=== PATIENT | female | born 1990 | race African-American/Black ===

== ENCOUNTER 2020-07-01 12:55 | Emergency (ER) | payer OTHER, SELFPAY ==
--- NOTE | 2020-07-01 13:05 | ED_ITS ---
HPI - General Adult General Chief complaint: ETOH/Substance Use Stated complaint: AMS Time Seen by Provider: 07/01/20 12:58 Source: patient and family Mode of arrival: ambulatory Limitations: other (agitated yelling out, initially denied opiate abuse recently, vague historian) History of Present Illness HPI narrative: 29 yo female with opiate use disorder started back on suboxone took a dose this AM - initially denied using recently but admits to taking percocets yesterday c/o anxiety/restlessness/vomiting/diarrhea patient very agitated on arrival. MD complaint: withdrawal Onset (ago): hour(s) (2) Severity: severe Quality: aching and constant Pain Consistency: constant Relieving factors: none Exacerbating factors: other (started after taking suboxone) Associated symptoms: loss of appetite, malaise, nausea/vomiting and other (anxiety, restlessness, diarrhea) Treatments prior to arrival: none Related Data Allergies Allergy/AdvReac Type Severity Reaction Status Date / Time ibuprofen [From MOTRIN] Allergy Intermediate SWELLING Unverified 11/09/19 19:42 fluoxetine [From PROZAC] Allergy Unknown HIVES Unverified 11/09/19 19:42 Review of Systems Review of Systems: ROS unable to be obtained due to agitation PMFSH Past Medical History Attestation statement: The following information was validated with the patient. Medical History Anxiety Opiate abuse, continuous Social History Social History (Updated 07/01/20 @ 13:24 by Leslye Gilman DO) Smoking Status: Unknown if ever smoked Substance Use Type: Heroin and Opiates Advance Directives: No Advance Directives Information Provided: No Physical Exam Vital Signs: Vital Signs: Last Vital Signs Pulse 70 07/01/20 13:49 Resp 22 H 07/01/20 13:49 BP 128/59 L 07/01/20 13:49 Pulse Ox 99 07/01/20 13:49 Body Mass Index 43.2 Appearance: Alert. Oriented X3. Anxious, moderate acute distress, yelling out Eyes: Pupils equal, round and reactive to light. ENT: Pharynx normal. Neck: Normal inspection. Neck supple. CVS: tachycardic heart rate and rhythm. Pulses normal. Respiratory: No respiratory distress. Breath sounds normal. Abdomen: Soft and nontender. Skin: Skin warm and dry. Normal skin color. Normal skin turgor. Extremities: No lower extremity edema. No calf ttp Neuro: Oriented X 3. No motor deficit. No sensory deficit. Psych: yelling out, restless, very anxious Course Course Course Narrative: patient more appropriate after medications asnwering questions but still restless ripped her IV out, eloped from the ED with her significant other Medical Decision Making MDM Narrative Medical decision making narrative: 29 yo female who took suboxone this AM for the first time a while this AM but unfortunately was taking oxycodone yesterday now with chills, anxiety, restless, diarrhea after putting herself into precipitated withdrawal, at this time given the degree of her symptoms offered IV ativan and IM haldol for symptom control, patient agrees and wants to try anything at this time. doubt other ingestions. Lab Data Result diagrams: 07/01/20 13:41 07/01/20 13:41 Labs: Lab Results 07/01/20 07/01/20 07/01/20 Range/Units 13:41 13:41 13:41 WBC 13.6 H (4.8-10.8) X10*3/uL RBC 5.55 H (4.20-5.50) X10*6/uL Hgb 12.6 (12.0-16.0) g/dl Hct 41.4 (37-47) % MCV 74.6 L (80-98) fL MCH 22.7 L (27.0-33.0) pg MCHC 30.4 L (31.0-35.0) g/dl RDW 15.3 (11.0-16.0) % Plt Count 256 (160-400) X10*3/uL MPV 11.7 (9.4-12.3) fL Immature Gran % (Auto) 0.4 (0.0-0.4) % Neut % (Auto) 80.7 H (45-73) % Lymph % (Auto) 12.0 L (20-40) % [place] % (Auto) 5.8 (2-11) % Eos % (Auto) 0.7 (0-4) % Baso % (Auto) 0.4 (0-2) % Lymph # (Auto) 1.6 (1.2-4.9) X10*3/uL [place] # (Auto) 0.8 (0.1-1.2) X10*3/uL Eos # (Auto) 0.1 (0.0-0.4) X10*3/uL Baso # (Auto) 0.1 (0.0-0.2) X10*3/uL Abs Immat Gran (auto) 0.05 H (0.00-0.03) X10*3/uL Absolute Neuts (auto) 11.0 H (2.0-8.3) X10*3/uL Absolute Nucleated RBC 0.000 (0.0-0.012) X10*3/uL Nucleated RBC % (auto) 0.0 (0.0-0.2) /100WBC Hold Blue Top SEE NOTE Sodium 136 (135-145) mmol/L Potassium 4.7 (3.3-5.1) mmol/L Chloride 103 (96-108) mmol/L Carbon Dioxide 25 (22-29) mmol/L Anion Gap 13 (12-20) BUN 14 (9-16) mg/dL Creatinine 0.88 (0.5-1.4) mg/dL Estim Creat Clear Calc 123.3 Estimated GFR > 60 Random Glucose 100 (60-115) mg/dL Calcium 9.8 (8.4-10.2) mg/dL Magnesium 2.0 (1.6-2.6) mg/dL Total Bilirubin 0.4 (0.0-1.0) mg/dL Direct Bilirubin < 0.2 (0.0-0.5) mg/dL AST 22 (5-31) U/L ALT 25 (0-31) U/L Alkaline Phosphatase 115 (39-117) U/L Total Protein 7.1 (6.5-8.0) g/dL Albumin 4.3 (3.5-5.0) g/dL Lipase 27 (8-78) U/L Ethyl Alcohol mg/dL 07/01/20 Range/Units 13:41 WBC (4.8-10.8) X10*3/uL RBC (4.20-5.50) X10*6/uL Hgb (12.0-16.0) g/dl Hct (37-47) % MCV (80-98) fL MCH (27.0-33.0) pg MCHC (31.0-35.0) g/dl RDW (11.0-16.0) % Plt Count (160-400) X10*3/uL MPV (9.4-12.3) fL Immature Gran % (Auto) (0.0-0.4) % Neut % (Auto) (45-73) % Lymph % (Auto) (20-40) % [place] % (Auto) (2-11) % Eos % (Auto) (0-4) % Baso % (Auto) (0-2) % Lymph # (Auto) (1.2-4.9) X10*3/uL [place] # (Auto) (0.1-1.2) X10*3/uL Eos # (Auto) (0.0-0.4) X10*3/uL Baso # (Auto) (0.0-0.2) X10*3/uL Abs Immat Gran (auto) (0.00-0.03) X10*3/uL Absolute Neuts (auto) (2.0-8.3) X10*3/uL Absolute Nucleated RBC (0.0-0.012) X10*3/uL Nucleated RBC % (auto) (0.0-0.2) /100WBC Hold Blue Top Sodium (135-145) mmol/L Potassium (3.3-5.1) mmol/L Chloride (96-108) mmol/L Carbon Dioxide (22-29) mmol/L Anion Gap (12-20) BUN (9-16) mg/dL Creatinine (0.5-1.4) mg/dL Estim Creat Clear Calc Estimated GFR Random Glucose (60-115) mg/dL Calcium (8.4-10.2) mg/dL Magnesium (1.6-2.6) mg/dL Total Bilirubin (0.0-1.0) mg/dL Direct Bilirubin (0.0-0.5) mg/dL AST (5-31) U/L ALT (0-31) U/L Alkaline Phosphatase (39-117) U/L Total Protein (6.5-8.0) g/dL Albumin (3.5-5.0) g/dL Lipase (8-78) U/L Ethyl Alcohol < 10 mg/dL Discharge Plan Discharge Clinical Impression: Opiate withdrawal Patient Disposition: [facility]op[facility]
[2020-07-01] MEDS: Haloperidol Lactate 5 MG/ML VIAL IM (13:31)
[2020-07-01] MEDS: LORazepam 2 MG/ML VIAL IVPUSH (13:31)
[2020-07-01] MEDS: 0.9 % Sodium Chloride 1,000 ML 999 ML IVCONT (13:32)
[2020-07-01 13:45] LABS: MANUAL DIFF FLAG NO
[2020-07-01 13:49] VITALS: BP 128/59; PULSE 70; RESP 22; O2SAT 99; BMI 43.2
--- NOTE | 2020-07-01 13:49 | MHC.RECOVSUP ---
? Reason for consult:Continuity of care o Current location: ED--17 o Identified substance use concern:ETOH - Withdrawal - Support ? Intervention: o MAT started or to be started o Community resources provided o Harm reduction discussion ? Plan: o Referral to [facility] o Patient to follow up with [facility] after discharge ? Additional information :Patient changed mind and was processed for discharge.
[2020-07-01 13:57] LABS: Basophils Absolute Auto 0.1 X10*3/uL (0.0-0.2); Basophils Percent Auto 0.4 % (0-2); Eosinophils Absolute Auto 0.1 X10*3/uL (0.0-0.4); Eosinophils Percent Auto 0.7 % (0-4); Hematocrit 41.4 % (37-47); Hemoglobin 12.6 g/dl (12.0-16.0); Imm Gran Abs Auto 0.05 X10*3/uL (0.00-0.03); Imm Gran Pct Auto 0.4 % (0.0-0.4); Lymphocytes Absolute Auto 1.6 X10*3/uL (1.2-4.9); Mean Corpuscular HGB Conc 30.4 g/dl (31.0-35.0); Mean Corpuscular Hemoglobin 22.7 pg (27.0-33.0); Mean Corpuscular Volume 74.6 fL (80-98); Mean Platelet Volume 11.7 fL (9.4-12.3); Monocytes Absolute Auto 0.8 X10*3/uL (0.1-1.2); Monocytes Percent Auto 5.8 % (2-11); Neutrophils Percent Auto 80.7 % (45-73); Platelet Count 256 X10*3/uL (160-400); Red Blood Count 5.55 X10*6/uL (4.20-5.50); Red Cell Distribution Width 15.3 % (11.0-16.0); White Blood Count 13.6 X10*3/uL (4.8-10.8)
[2020-07-01 14:16] LABS: Ethanol < 10 mg/dL
[2020-07-01 14:18] LABS: Alanine Aminotransferase 25 U/L (0-31); Albumin Level 4.3 g/dL (3.5-5.0); Alkaline Phosphatase 115 U/L (39-117); Anion Gap 13 (12-20); Aspartate Amino Transferase 22 U/L (5-31); Bilirubin Direct < 0.2 mg/dL (0.0-0.5); Bilirubin Total 0.4 mg/dL (0.0-1.0); Blood Urea Nitrogen 14 mg/dL (9-16); Calcium 9.8 mg/dL (8.4-10.2); Carbon Dioxide 25 mmol/L (22-29); Chloride 103 mmol/L (96-108); Creatinine Clr Calc Pharmacy 123.3; Estimated Glomerular Filt Rate > 60; Glucose Random 100 mg/dL (60-115); Lipase 27 U/L (8-78); Potassium 4.7 mmol/L (3.3-5.1); Sodium 136 mmol/L (135-145); Total Protein 7.1 g/dL (6.5-8.0)
[2020-07-01] MEDS: LORazepam 2 MG/ML VIAL 1 MG IVPUSH (14:24)
--- NOTE | 2020-07-01 15:48 | PC.NURSE ---
medication discussed between patient and provider. patient agreeable to medication treatment for the symptoms of withdrawl.
== END 2020-07-01 15:48 | disposition left against medical advice (07) ==
PROVIDERS: Emergency Medicine; Emergency Provider Emergency Medicine
DX: F11.23 Opioid dependence with withdrawal (principal); F41.9 Anxiety disorder, unspecified
CPT/HCPCS: 36415; 80048; 80076; 80320; 83690; 83735; 85025; 96361; 96372; 96374; 96375; 96376; 99284; J2060

== ENCOUNTER 2022-05-09 06:00 | Emergency (ER) | payer OTHER, SELFPAY ==
[2022-05-09 06:07] VITALS: BP 146/72; PULSE 119; RESP 18; TEMP 36.8; O2SAT 100; BMI 27.4
--- NOTE | 2022-05-09 06:14 | PC.NURSE ---
Patient requesting discharge, denied SI/HI/AVH, patient doesn't remember how she got at [place], appears she might have taken extra dose of Ambien which is one of her prescribed medication, provider saw the patient agreed to discharge patient if she has ride back home, patient currently trying to reach her for ride back home, will continue to monitor.
--- NOTE | 2022-05-09 06:38 | ED.PSYCH ---
HPI - Psych General Chief Complaint: Psychiatric Symptoms Stated Complaint: crisis Time Seen by Provider: 05/09/22 06:27 Source: patient Mode of arrival: EMS Limitations: no limitations History of Present Illness HPI Narrative: Patient with history of insomnia on zolpidem took 20 mg earlier [place] having erratic behavior sleepy denies any drugs abuse denies any suicidal ideation depression Related Data Allergies Allergy/AdvReac Type Severity Reaction Status Date / Time ibuprofen [From MOTRIN] Allergy Intermediate SWELLING Unverified 11/09/19 19:42 fluoxetine [From PROZAC] Allergy Unknown HIVES Unverified 11/09/19 19:42 Review of Systems Review of Systems: Yes all other systems are reviewed and are negative PMFSH Past Medical History Medical History Anxiety Opiate abuse, continuous Social History Social History Substance Use Type: Heroin and Opiates Physical Exam Vital Signs: Vital Signs: Last Vital Signs Temp 98.2 F 05/09/22 06:07 Pulse 119 H 05/09/22 06:07 Resp 18 05/09/22 06:07 BP 146/72 H 05/09/22 06:07 Pulse Ox 100 05/09/22 06:07 O2 Del Method 05/09/22 06:07 BMI result Body Mass Index 27.4 Appearance: Alert. Oriented X3. No acute distress. Falling sleep very often Eyes: PERRLA, No Nystagmus ENT: Pharynx normal. Oral Mucosa moist Neck: Normal inspection. Neck supple. CVS: Normal heart rate and rhythm. Pulses normal. Respiratory: No respiratory distress. Equal air entry bilateral, no wheezing/rales/rhonchi Abdomen: Soft and nontender. Bowel sounds are present, Skin: Skin warm and dry. Normal skin color. Normal skin turgor. Extremities: No lower extremity edema. No calf tenderness Neuro: Oriented X 3. No motor deficit. No sensory deficit. Medical Decision Making Medical Decision Making MDM Narrative: Patient does not want any psych evaluation does not want any urine testing done feels safe at home will call family to take her home feeling sleepy secondary to zolpidem which she took accidentally 2 tablets instead of 1 Discharge Plan Discharge Clinical Impression: Ambien accidental overdose Patient Disposition: Still a Patient Instructions: Benzodiazepine Overdose (ED) Additional Instructions: Do not overdose on Ambien Take medication as prescribed only Interventions: [place]-Suicide Risk Severity Scale Last Done: 05/09/22 06:13
== END 2022-05-09 10:09 | disposition home or self-care (01) ==
PROVIDERS: Emergency Provider Internal Medicine
DX: R40.0 Somnolence (principal); T42.6X1A Poisoning by other antiepileptic and sedative-hypnotic drugs, accidental (unintentional), initial encounter; Y92.524 Gas station as the place of occurrence of the external cause; G47.00 Insomnia, unspecified; Z79.899 Other long term (current) drug therapy
CPT/HCPCS: 99284

== ENCOUNTER 2022-12-16 08:55 | Emergency (ER) | payer OTHER, SELFPAY ==
[2022-12-16] VITALS (7 sets, daily range): BP systolic 98–130; BP diastolic 56–90; PULSE 59–98; RESP 14–17; TEMP 36.6–37; O2SAT 98–100; BMI 37.4
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
--- NOTE | 2022-12-16 09:23 | PC.NURSE ---
arousable to voice, collar in place by ems, skin wpd, resp even and unlabored, pd at bedside and cuffed to the bed
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
[2022-12-16 09:48] LABS: MANUAL DIFF FLAG NO
[2022-12-16 10:07] LABS: Alanine Aminotransferase 12 U/L (0-31); Albumin Level 4.3 g/dL (3.5-5.0); Alkaline Phosphatase 69 U/L (39-117); Anion Gap 10 (12-20); Aspartate Amino Transferase 14 U/L (5-31); Bilirubin Direct < 0.2 mg/dL (0.0-0.5); Bilirubin Total 0.2 mg/dL (0.0-1.0); Blood Urea Nitrogen 13 mg/dL (9-16); Calcium 9.2 mg/dL (8.4-10.2); Carbon Dioxide 26 mmol/L (22-29); Chloride 105 mmol/L (96-108); Creatinine Clr Calc Pharmacy 124.9; Estimated Glomerular Filt Rate > 60; Glucose Random 84 mg/dL (60-115); Lipase 8 U/L (8-78); Potassium 4.4 mmol/L (3.3-5.1); Sodium 137 mmol/L (135-145); Total Protein 7.3 g/dL (6.5-8.0)
[2022-12-16 10:10] LABS: Ethanol < 10 mg/dL
[2022-12-16 10:13] LABS: HCG Quantitative < 2 mIU/mL
[2022-12-16 10:15] LABS: Basophils Percent Auto 0.3 % (0-2); Hemoglobin 9.1 g/dl (12.0-16.0); Imm Gran Abs Auto 0.03 X10*3/uL (0.00-0.03); Imm Gran Pct Auto 0.3 % (0.0-0.4); Lymphocytes Absolute Auto 1.4 X10*3/uL (1.2-4.9); Lymphocytes Percent Auto 14.1 % (20-40); Mean Corpuscular HGB Conc 28.4 g/dl (31.0-35.0); Mean Corpuscular Hemoglobin 18.5 pg (27.0-33.0); Mean Platelet Volume 10.5 fL (9.4-12.3); Monocytes Absolute Auto 0.6 X10*3/uL (0.1-1.2); Monocytes Percent Auto 6.5 % (2-11); Neutrophils Absolute Auto 7.6 x10*3/uL (2.0-8.3); Neutrophils Percent Auto 78.8 % (45-73); Platelet Count 210 X10*3/uL (160-400); Red Blood Count 4.92 X10*6/uL (4.20-5.50); Red Cell Distribution Width 20.5 % (11.0-16.0); White Blood Count 9.7 X10*3/uL (4.8-10.8)
--- NOTE | 2022-12-16 11:57 | PC.NURSE ---
pt returned from CT scan, assisted with bed jose, Urine specimens collected per orders, new linens placed under pt, warm blankets given HOB lowered. c-collar in place still in [employer] custody
[2022-12-16] MEDS: iohexoL 350 MG/ML 100 ML INFUS..BTL 85 ML IV (11:58)
[2022-12-16 12:08] LABS: Amphetamine Screen Urine Not Detected (Not Detect); Barbiturates, Urine Not Detected (Not Detect); Benzodiazepines Screen Urine Not Detected (Not Detect); Cannabinoid Screen Urine Not Detected (Not Detect); Cocaine Screen Urine POSITIVE (Not Detect); Fentanyl, urine POSITIVE (Not Detect); Opiate Screen Urine POSITIVE (Not Detect); Phencyclidine Screen Urine Not Detected (Not Detect)
[2022-12-16 12:14] LABS: Appearance Urine Cloudy; Color Urine Yellow; Glucose Urine UA Negative (Negative); Leukocyte Esterase Urine Small (1+) (Negative); Nitrite Urine Positive (Negative); PH 7.5 (5.0-9.0); Specific Gravity - Urine >= 1.030 (1.005-1.025); UMIC TRIGGER UACC YES; Urine Blood Negative (Negative); Urine Ketones Negative (Negative); Urine Protein Negative (Neg-Trace)
[2022-12-16 12:16] LABS: UPreg QC Valid YES; Urine Pregnancy NEGATIVE (NEGATIVE)
[2022-12-16 12:19] LABS: Bacteria Urine 4+ (None Seen); Hyaline Casts Urine 0-2 /LPF (0-2); RBC Urine 0-2 /HPF (0-2); UACC Culture Trigger YES
[2022-12-16 18:48] LABS: MANUAL DIFF FLAG NO
[2022-12-16 18:58] LABS: Basophils Percent Auto 0.4 % (0-2); Hematocrit 30.4 % (37.0-47.0); Imm Gran Abs Auto 0.01 X10*3/uL (0.00-0.03); Imm Gran Pct Auto 0.1 % (0.0-0.4); Lymphocytes Absolute Auto 1.6 X10*3/uL (1.2-4.9); Lymphocytes Percent Auto 20.3 % (20-40); Mean Corpuscular HGB Conc 29.6 g/dl (31.0-35.0); Mean Corpuscular Hemoglobin 18.8 pg (27.0-33.0); Mean Corpuscular Volume 63.3 fL (80.0-98.0); Mean Platelet Volume 9.9 fL (9.4-12.3); Monocytes Absolute Auto 0.5 X10*3/uL (0.1-1.2); Neutrophils Absolute Auto 5.6 x10*3/uL (2.0-8.3); Neutrophils Percent Auto 72.2 % (45-73); Platelet Count 199 X10*3/uL (160-400); Red Cell Distribution Width 20.4 % (11.0-16.0); White Blood Count 7.7 X10*3/uL (4.8-10.8)
--- NOTE | 2022-12-16 22:06 | PC.NURSE ---
pt continues to be in [employer] custody pt has been slow to rouse throughout shift, answering in one or two words to nurse/provider questions then immediately going back to sleep. Pt is rousable to verbal/tactile stimuli. Ptw as ordered ceftin for Urinary tract infection, however since pt has been difficult to rouse, hindering education on the medication, and has not been admin. Ptrespirations even and unlabored- O2 sat probe in place, 98% on room air at this time. no apparent distress, PD at bedside. plan for dc once pt more alert. care ongoing
[2022-12-17] MEDS: Naloxone HCl 0.4 MG/ML VIAL IVPUSH (02:06)
--- NOTE | 2022-12-17 02:13 | PC.NURSE ---
assumed care of pt
[2022-12-17 02:17] VITALS: BP 119/89; RESP 94; TEMP 36.6
--- NOTE | 2022-12-17 02:20 | PC.NURSE ---
pt sts feeling nauseous after narcan and does not wantto take PO antibiotic at this time
--- NOTE | 2022-12-17 03:14 | PC.NURSE ---
attempted to ambulate pt, pt refusing I am too dizzy Will let provider know
--- NOTE | 2022-12-17 03:28 | PC.NURSE ---
pt refused antibiotic
[2022-12-17 03:42] VITALS: RESP 16
== END 2022-12-17 04:04 ==
PROVIDERS: Physician Assistant Medical; Emergency Provider Emergency Medicine
DX: Z04.1 Encounter for examination and observation following transport accident (principal); N39.0 Urinary tract infection, site not specified; F11.10 Opioid abuse, uncomplicated; F14.10 Cocaine abuse, uncomplicated; F41.9 Anxiety disorder, unspecified
CPT/HCPCS: 36415; 70450; 71260; 72125; 74177; 80048; 80076; 80307; 81001; 81003; 81025; 83690; 84702; 85025; 87086; 87088; 87186; 96374; 99284; Q9967

== ENCOUNTER 2024-02-17 09:33 | Outpatient (REF) | payer OTHER, SELFPAY ==
[2024-02-17 11:25] LABS: Hematocrit 38.4 % (37.0-47.0); Hemoglobin 11.8 g/dl (12.0-16.0); Mean Corpuscular HGB Conc 30.7 g/dl (31.0-35.0); Mean Corpuscular Hemoglobin 24.7 pg (27.0-33.0); Mean Corpuscular Volume 80.5 fL (80.0-98.0); Mean Platelet Volume 11.4 fL (9.4-12.3); Platelet Count 274 X10*3/uL (160-400); Red Blood Count 4.77 X10*6/uL (4.20-5.50); Red Cell Distribution Width 13.3 % (11.0-16.0); White Blood Count 10.7 X10*3/uL (4.8-10.8)
[2024-02-17 11:58] LABS: Alanine Aminotransferase 38 U/L (0-31); Albumin Level 3.8 g/dL (3.5-5.0); Anion Gap 12 (12-20); Aspartate Amino Transferase 29 U/L (5-31); Bilirubin Total 0.2 mg/dL (0.0-1.0); Blood Urea Nitrogen 7 mg/dL (9-16); Calcium 8.8 mg/dL (8.4-10.2); Carbon Dioxide 23 mmol/L (22-29); Chloride 108 mmol/L (96-108); Estimated Glomerular Filt Rate > 60; Glucose Random 105 mg/dL (60-115); Potassium 3.9 mmol/L (3.3-5.1); Sodium 139 mmol/L (135-145); Total Protein 6.9 g/dL (6.5-8.0)
[2024-02-17 12:44] LABS: Alkaline Phosphatase 118 U/L (39-117)
[2024-02-17 14:47] LABS: HBsAGNum1 0.32 S/CO (0.00-0.99); HIV AB/AG Nonreactive (Nonreactive); HIV Num 1 0.06 S/CO (0.00-0.99); Hepatitis B Surface Antigen Negative (Negative)
[2024-02-18 07:58] LABS: Hepatitis B Surface Ab Qnt <5 mIU/mL (> OR = 10)
[2024-02-18 12:44] LABS: HCV RNA PCR Qn <1.18 NOT DETECTED Log IU/mL (NOT DETECTED); HCV RNA PCR Qn <15 NOT DETECTED IU/mL (NOT DETECTED)
== END 2024-02-17 09:34 | disposition home or self-care (01) ==
LOC: HO.HHCL 09:33
PROVIDERS: Visit Provider Physician Assistant
DX: Z11.4 Encounter for screening for human immunodeficiency virus [HIV] (principal); F11.10 Opioid abuse, uncomplicated
CPT/HCPCS: 36415; 80053; 85027; 86317; 87340; 87389; 87522

== ENCOUNTER 2024-03-13 18:57 | Emergency (ER) | payer OTHER, SELFPAY ==
--- NOTE | ~2024-03-13 | CT_ITS ---
CLINICAL HISTORY: Fall, head strike, nausea, rule out fracture, blee CT head without contrast Comparison: Head CT from 12/16/2022 Findings: No acute intracranial hemorrhage. No midline shift or hydrocephalus. Arredondo matter-white matter differentiation is adequate and not significantly changed from comparison, accounting for differences in artifacts. Imaged paranasal sinuses and imaged mastoid air cells are well aerated. Metal artifacts secondary to right-sided earring. Nasal septum defect redemonstrated. No acute skull fracture. IMPRESSION: No acute intracranial abnormality by CT and no significant change compared to 12/16/2022. This document has been electronically signed by: Jose Byrne MD on 03/13/2024 20:55:24
--- NOTE | ~2024-03-13 | CT_ITS ---
CLINICAL HISTORY: Fall, severe lower back pain, R O fracture CT lumbar spine without contrast Comparison: None Findings: Normal heights of 5 lumbar vertebrae. No acute fracture of the lumbar spine.No significant listhesis. Mild facet arthropathy. No osseous spinal stenosis by CT. Dorsal subcutaneous fluid is partially imaged in the [id number]. Imaged retroperitoneal lymph nodes are nonspecific irregular reactive. Motion artifacts about imaged upper abdomen with likely cholecystectomy clips. Minimal atelectasis in the [id number]. IMPRESSION: No acute fracture or posttraumatic malalignment of the lumbar spine. This document has been electronically signed by: Jose Byrne MD on 03/13/2024 20:51:08
--- NOTE | ~2024-03-13 | CT_ITS ---
CLINICAL HISTORY: Fall, neck pain, rule out fracture CT cervical spine without contrast Comparison: CT of the cervical spine from 12/16/2022 Findings: Straightening of the cervical lordosis. No significant change in vertebral heights or vertebral alignments. No acute fracture of the cervical spine. Mild degenerative changes include facet arthropathy. No osseous spinal stenosis by CT. Mild rotation of the craniocervical junction without disc association. Leftward curvature of the time of the imaging. No paraspinal hematoma. Motion artifacts about imaged lung apices and imaged. Metal artifacts from likely right sided ear ring. Findings of poor dentition on the spinning room worker images. IMPRESSION: 1. No acute fracture cervical spine. 2. Straightening of the cervical lordosis. This document has been electronically signed by: Jose Byrne MD on 03/13/2024 20:49:52
[2024-03-13 19:12] VITALS: BP 127/85; PULSE 96; O2SAT 99
[2024-03-13 19:21] VITALS: BP 149/93; PULSE 90; RESP 16; TEMP 36.7; O2SAT 97; BMI 52.1
--- NOTE | 2024-03-13 19:35 | ED_ITS ---
HPI - Fall General Chief Complaint: Fall Stated Complaint: fall yesterday, +head strike, -loc,- thinners Time Seen by Provider: 03/13/24 19:26 Source: patient Mode of arrival: ambulatory Limitations: no limitations History of Present Illness ED Provider: Dr. Osiel Leon HPI Narrative: 33-year-old female polysubstance use disorder (opiates, cocaine, alcohol) who presents emergency department for evaluation of headache, neck pain and lower back pain secondary to a fall that occurred yesterday at 08:30 hours. The patient was living in a care home house. She states she was walking down a ramp to true garbage into the dumpster. She turned to throw the garbage since the dumpster slipped and fell. She states that she hit her head and lower back on the ground. She does not think that she passed out. Since the fall she was had increased pain in her lower back and tailbone area. She states she has a headache, she feels dizzy and has nausea. Patient denied numbness or weakness. She denied loss of bowel or bladder control. Patient was on methadone and she denied using injection drugs. Related Data Previous Rx's ?Medication ?Instructions ?Recorded cefuroxime axetil 250 mg tablet 250 mg PO BID 7 days #14 tabs 12/16/22 Allergies Allergy/AdvReac Type Severity Reaction Status Date / Time ibuprofen [From MOTRIN] Allergy Intermediate SWELLING Verified 03/13/24 19:22 fluoxetine [From PROZAC] Allergy Unknown HIVES Verified 03/13/24 19:22 From PROZAC Allergy Unknown RASH Uncoded 03/13/24 19:22 Review of Systems Review of Systems: Yes all other systems are reviewed and are negative [facility] Past Medical History [facility] Narrative: Social history: She was currently living in a care home house since being release d from [facility]. She does smoke cigarettes. She denies alcohol use. She denies drug use. Medical History (Updated 03/13/24 @ 22:08 by Osiel Leon MD) Opiate abuse, continuous Anxiety Social History Social History (System 12/18/22 @ 13:05 by Kerry Munguia) Substance Use Type: Heroin and Opiates Advance Directives: No Advance Directives Information Provided: No Do you have a plan to hurt others: No Plan Physical Exam Vital Signs: Vital Signs: Last Vital Signs Temp 98.1 F 03/13/24 19:21 Pulse 90 03/13/24 19:21 Resp 16 03/13/24 19:21 BP 149/93 H 03/13/24 19:21 Pulse Ox 97 03/13/24 19:21 O2 Del Method Room Air 03/13/24 19:21 BMI result Body Mass Index 52.1 Vital signs revealed an elevated blood pressure of 149/93 otherwise unremarkable Exam: General: Awake, patient was crying, appears to be in distress secondary to her back pain, weight 141.9 kg with an elevated BMI of 52.1 kg per m2 Head: Normocephalic, atraumatic EENT: PERRL, Lids normal, sclera normal, conjunctiva normal, nose normal , ears normal, throat without erythema or exudates Neck: Supple, no adenopathy Lung: breath sounds symmetric, no wheezing, rales or rhonchi Chest: symmetric movement, nontender Heart: regular rate and rhythm, normal S1, S2 no murmurs or rubs Abdomen: soft, non-tender, nondistended, normal bowel sounds Back: Patient has tenderness palpation of her lumbar vertebrae as well as her paraspinal muscles in the lumbar sacral area bilaterally Extremities: no deformities, moves all extremities symmetrically Neuro: Awake, alert, oriented, normal speech, cranial nerves intact, moves all extremities symmetrically Psych: Pleasant, cooperative Medications Administered Discontinued Medications Generic Name Dose Route Start Last Admin Trade Name Freq PRN Reason Stop Dose Admin Hydromorphone HCl 1 mg 03/13/24 19:36 03/13/24 19:47 Hydromorphone Hcl 1 Mg/Ml Syringe IVPUSH 03/13/24 19:37 1 mg ONCE STA Administration Protocol Medical Decision Making Medical Decision Making [facility] Narrative: 33-year-old female polysubstance use disorder (opiates, cocaine, alcohol) who presents emergency department for evaluation of headache, neck pain and lower back pain secondary to a fall that occurred yesterday at 08:30 hours. Patient slipped on ramp when she was trying to throw garbage into a dumpster, injuring her head and lower back. Pain is gotten progressively worse. On examination of the patient was tearful and appeared to be in distress secondary to her lower back pain. Patient did have tenderness palpation of her lumbar vertebrae as well as a paraspinal muscles in the lumbar sacral area. Differential diagnosis: ?Includes but is not limited to skull fracture, intracranial bleed, neck fracture, neck sprain, back contusion, vertebral fractures, anemia, electrolyte abnormalities Course: 21:51 My interpretation patient's of the patient's laboratory evaluation is as follows: CBC was normal. CMP revealed an elevated ALT of 38 and elevated alk- phos of 118. CT scans of the head, cervical spine and lumbar spine revealed no acute fractures. The patient's pain was treated with Dilaudid 1 mg IV x2 with improvement of her pain. I did discuss the CT findings with the patient. Patient was advised to take ibuprofen 400 mg 3 times a day, Tylenol 1000 mg 3 times a day and she was prescribed Flexeril 10 mg 3 times a day as needed for spasm. The patient was given printed and verbal instructions and discharged home. Admission/Observation Consideration of admission/observation: Escalation of care including admiss ion/observation considered (Yes) Lab Data MDM Lab Attestation statement: I reviewed the patient's lab results. Radiology Impression Discussion of test interpretation with radiology: I have reviewed the radiologist's reading. Radiologist Impression: CT head without contrast Comparison: Head CT from 12/16/2022 Findings: No acute intracranial hemorrhage. No midline shift or hydrocephalus. Arredondo matter-white matter differentiation is adequate and not significantly changed from comparison, accounting for differences in artifacts. Imaged paranasal sinuses and imaged mastoid air cells are well aerated. Metal artifacts secondary to right-sided earring. Nasal septum defect redemonstrated. No acute skull fracture. IMPRESSION: No acute intracranial abnormality by CT and no significant change compared to 12/16/2022. This document has been electronically signed by: Jose Byrne MD CT cervical spine without contrast Comparison: CT of the cervical spine from 12/16/2022 Findings: Straightening of the cervical lordosis. No significant change in vertebral heights or vertebral alignments. No acute fracture of the cervical spine. Mild degenerative changes include facet arthropathy. No osseous spinal stenosis by CT. Mild rotation of the craniocervical junction without disc association. Leftward curvature of the time of the imaging. No paraspinal hematoma. Motion artifacts about imaged lung apices and imaged. Metal artifacts from likely right sided ear ring. Findings of poor dentition on the slipper maker images. IMPRESSION: 1. No acute fracture cervical spine. 2. Straightening of the cervical lordosis. This document has been electronically signed by: Jose Byrne MD on 03/13/2024 20:49 CT lumbar spine without contrast Comparison: None Findings: Normal heights of 5 lumbar vertebrae. No acute fracture of the lumbar spine.No significant listhesis. Mild facet arthropathy. No osseous spinal stenosis by CT. Dorsal subcutaneous fluid is partially imaged in the [id number]. Imaged retroperitoneal lymph nodes are nonspecific irregular reactive. Motion artifacts about imaged upper abdomen with likely cholecystectomy clips. Minimal atelectasis in the [id number]. IMPRESSION: No acute fracture or posttraumatic malalignment of the lumbar spine. This document has been electronically signed by: Jose Byrne MD Prescription Management I considered prescription management with: Other (Anti spasmodic: Flexeril) Discharge Plan Discharge Clinical Impression: Fall, Closed head injury, Contusion of lumbar spinal region Patient Disposition: Home, Self-Care Instructions: Head Injury (ED), Acute Low Back Pain (ED) Prescriptions: No Action cefuroxime axetil 250 mg tablet 250 mg PO BID 7 Days Qty: 14 0RF Print Language: Maltese
[2024-03-13] MEDS: HYDROmorphone HCl 1 MG/ML SYRINGE IVPUSH ×2 (19:47→22:29)
[2024-03-13 22:24] VITALS: BP 143/84; PULSE 88; RESP 16; TEMP 36.7; O2SAT 97
[2024-03-13 22:40] VITALS: BP 143/84; PULSE 88; RESP 16; TEMP 36.7; O2SAT 97
== END 2024-03-13 22:40 | disposition home or self-care (01) ==
PROVIDERS: Emergency Provider Emergency Medicine Emergency Medical Services
DX: S09.90XA Unspecified injury of head, initial encounter (principal); S34.109A Unspecified injury to unspecified level of lumbar spinal cord, initial encounter; W01.0XXA Fall on same level from slipping, tripping and stumbling without subsequent striking against object, initial encounter; Y93.9 Activity, unspecified; Y92.89 Other specified places as the place of occurrence of the external cause; Y99.9 Unspecified external cause status; M54.2 Cervicalgia; M54.50 Low back pain, unspecified; R11.0 Nausea; R51.9 Headache, unspecified
CPT/HCPCS: 70450; 72125; 72131; 96374; 96376; 99284; J1171

== ENCOUNTER 2024-04-06 08:52 | Emergency (ER) | payer OTHER, SELFPAY ==
[2024-04-06 09:23] VITALS: BP 139/76; PULSE 91; RESP 16; TEMP 36.7; O2SAT 97; BMI 51.4
--- NOTE | 2024-04-06 10:03 | PC.NURSE ---
Methadone verification form faxed to pharmacy.
--- NOTE | 2024-04-06 10:46 | HE.PHANOTE ---
Re: Methadone Pt receives from STEVE Castaneda MA. Per JADYN Fox, at facility, pt last received 140mg on 03/29/24 @ 0810 and given 6 take home bottles. Pt should have enough take home bottles to last until 04/04.
--- NOTE | 2024-04-06 11:33 | ED.GENADULT ---
HPI - General Adult General Chief complaint: General Medical Stated complaint: Methadone dose Time Seen by Provider: 04/06/24 11:27 Source: patient, RN notes reviewed and old records reviewed Mode of arrival: ambulatory Limitations: no limitations History of Present Illness ED Provider: Fili HPI narrative: Patient is a 33-year-old female presenting to the emergency department requesting her methadone dose of 140 mg. She is typically dosed at [facility] in [place], however, the clinic is closed today due to inclement weather. She denies any current complaints. MD complaint: Methadone dependence Related Data Home Medications ?Medication ?Instructions ?Recorded ?Confirmed methadone 10 mg/mL oral 140 mg PO DAILY 04/06/24 04/06/24 concentrate (Methadone Intensol) Previous Rx's ?Medication ?Instructions ?Recorded cefuroxime axetil 250 mg tablet 250 mg PO BID 7 days #14 tabs 12/16/22 cyclobenzaprine 10 mg tablet 10 mg PO TID PRN muscle pain or 03/13/24 spasm #20 tabs Allergies Allergy/AdvReac Type Severity Reaction Status Date / Time ibuprofen [From MOTRIN] Allergy Intermediate SWELLING Verified 04/06/24 09:26 fluoxetine [From PROZAC] Allergy Unknown HIVES Verified 04/06/24 09:26 From PROZAC Allergy Unknown RASH Uncoded 03/13/24 19:22 Review of Systems Review of Systems: As per HPI Yes all other systems are reviewed and are negative Constitutional: Constitutional: Reports as per HPI [facility] Past Medical History Medical History (Updated 04/06/24 @ 11:33 by Emely Penn NP) Opiate abuse, continuous Anxiety Social History Social History (System 12/18/22 @ 13:05 by Kerry Munguia) Substance Use Type: Heroin and Opiates Advance Directives: No Advance Directives Information Provided: No Do you have a plan to hurt others: No Plan Physical Exam ED Vital Signs: Vital Signs - 24 hr 04/06/24 09:23 04/06/24 12:01 Temperature 98.0 F 98.0 F Pulse Rate 91 91 Respiratory Rate 16 16 Blood Pressure 139/76 139/76 Pulse Oximetry 97 97 Oxygen Delivery Method Room Air Room Air BMI result Body Mass Index 51.4 Vital signs have been reviewed and appear to be correct. Blood pressure normal. Heart rate normal. Respiratory rate normal. Temperature normal. Oxygen saturation normal. Const General: cooperative, healthy appearing and no acute distress Orientation/consciousness: oriented to person, oriented to place, oriented to time and patient oriented x3 Limitations: no limitations HENMT Head: Yes normocephalic and Yes atraumatic Ears: external ears normal General nose exam: Normal external nose present Face and sinus: Yes face symmetric Mouth: oropharynx normal and moist mucous membranes Throat: Yes uvula midline Eyes Pupils: Equal, round and reactive pupils present Neck Neck: Yes normal visual inspection and Yes supple Resp Effort & Inspection: normal respiratory effort and able to speak in complete sentences Auscultation: clear to auscultation bilaterally Cardio Rate: regular rate Rhythm: regular rhythm Heart sounds: S1 normal heart sound present and S2 normal heart sound present GI Palpation (GI): Soft to palpation and nontender Auscultation: normoactive bowel sounds General: Yes no CVA tenderness Back/Spine/Pelvis Back: no CVA tenderness Skin General skin exam: elasticity normal and turgor normal Neuro General: oriented to person, oriented to place, oriented to time, patient oriented x3, moves all extremities, no focal motor deficits and CN's II-XI intact bilaterally Cranial nerves: Yes Equal, round and reactive pupils present Cognition (Neuro): normal cognition Extrem General: Yes full ROM, Yes no pedal edema and Yes no calf tenderness Psych Mental Status: mental status grossly normal Affect: normal affect Thought process: Normal thought process present Medications Administered Discontinued Medications Generic Name Dose Route Start Last Admin Trade Name Freq PRN Reason Stop Dose Admin Methadone HCl 140 mg 04/06/24 11:15 04/06/24 11:43 Methadone Hcl 20 Mg/2 Ml Oral.Conc PO 04/06/24 11:16 140 mg ONCE ONE Administration Medical Decision Making Medical Decision Making [facility] Narrative: Patient is a 33-year-old female presenting to the emergency department requesting her methadone dose of 140 mg. On exam patient is awake, A+Ox3, VS WNL, afebrile, normal neurological exam without focal deficits, physical exam findings as above. Given reported symptoms and physical exam findings, initial differential includes but is not limited to methadone dependence. Dose verified with clinic by RN, patient medicated, provided with last dose letter. Return precautions discussed. Patient verbalized understanding of and agreement with plan. Differential Diagnosis Differential Diagnoses: The differential diagnosis associated with the presentation includes As per [facility] External Record Review External record reviewed: Inpatient record, Office record, Outpatient record and Other Discharge Plan Discharge Clinical Impression: Methadone dependence Patient Disposition: Home, Self-Care Additional Instructions: Opiate use disorder You were seen in our Emergency Department today for treatment of opiate use disorder. You may have been dosed with medication for opiate use disorder (MOUD) in the form of suboxone or methadone. You may experience feeling some withdrawal symptoms and this is normal. The? dose in the Emergency Department is a starting dose and meant to be titrated up once you follow up with a clinic. Please do not feel discouraged, it is a process. The nurse has reviewed with you where to follow up and what information to bring with you, to continue treatment. You also may have been given naloxone (narcan) to take home with you. This medication is used to potentially treat opiate overdose. If you decide you want to stop or cut down on how much you?re using, you can call or walk into our outpatient Addiction Treatment office: [facility] (M-F 9am-5p) [address] [place] [address], [phone] You may have been provided with safer injection?items, please take time to take care of YOU and your health. Use new supplies whenever possible to lessen the chances of infections and other illnesses.? ?If you need more supplies, please go [facility],? [address] [place] [address] OR you can call or text to coordinate delivery of safer supplies. You were also provided a list of several treatment providers in the area.? If you experience any worsening symptoms you cannot control please return to the ED or call 911. Please follow up at your next appointment. Things to look out for are fevers, chest pain, shortness of breath, severe pain, dizziness, fainting or any other concerns. Prescriptions: No Action cefuroxime axetil 250 mg tablet 250 mg PO BID 7 Days Qty: 14 0RF methadone [Methadone Intensol] 10 mg/mL Concentrate 140 mg PO DAILY cyclobenzaprine 10 mg tablet 10 mg PO TID PRN (Reason: muscle pain or spasm) Qty: 20 0RF Interventions: ED Discharge Assessment Last Done: 04/06/24 12:01 Discharge Date/Time: 04/06/24 12:01 Print Language: Greenlandic
[2024-04-06] MEDS: methADONE HCl 20 MG/2 ML ORAL.CONC 140 MG PO (11:43)
[2024-04-06 12:01] VITALS: BP 139/76; PULSE 91; RESP 16; TEMP 36.7; O2SAT 97
--- OUTSIDE RECORDS SUMMARY | 2024-04-06 12:14 | XMS_ITS | Continuity of Care Document ---
Author Organization [facility] Address [address] [place] [id number]- Care Team Providers Care Integration Director Name Role Phone Edith TINAJERO, Amrik Primary Care Physician [phone] Encounter [facility] Date(s): 01/04/24 - 03/22/[address] [address]- Attending Physician: Connie Stoddard MD Admitting Physician: Connie Stoddard MD Encounter Type: Pre-OutPatient One Time Allergies, Adverse Reactions, Alerts Substance Criticality Severity Reaction Reaction Severity Status ibuprofen 1 Active Prozac 2 Active 1tongue, mouth swelling 2rash, facial swelling Immunizations Given and Recorded Vaccine Date Status Refusal Reason Measles/Mumps/Rubella Virus Vaccine 1 10/31/21 Giv en SARS-CoV-2 (COVID-19) mRNA-1273 vaccine 08/07/20 R ecorded Human Papillomavirus Vaccine 12/31/17 Given Human Papillomavirus Vaccine 08/18/16 Given influenza virus vaccine, inactivated 12/07/16 Give n influenza virus vaccine, inactivated 2 12/12/10 Gi domenico tetanus/diphtheria/pertussis, acel(Tdap) 07/04/12 Given tetanus/diphtheria/pertussis, acel(Tdap) 3 01/30/11 Given pneumococcal 23-valent vaccine 4 01/30/11 Given influ virus vac, H1N1, inactive(oldterm) 12/27/08 Given 1Early/Late Reason: Early/Late Reason: Med Not Available 2Admin Note: vis 09/2010 3Admin Note: VIS 12/30 4Admin Note: vis 05/31 Medications acetaminophen 325 mg oral tablet 975 mg, 3, tablet, By Mouth, 3 times a day, pt. may refuse, Refills 0, Maintenance, 06/06/23 1:12:00PM EDT, Partial fill upon patient request if the prescription is for a schedule II opioid drug. Start Date: 06/06/23 Status: Ordered Repeat number: 1 amoxicillin 500 mg oral capsule 1 capsule = 500 mg, By Mouth, 3 times a day, 06/06/23-06/10/23, 0 Refills, Maintenance, 06/06/23 1:15:00 PM EDT, Partial fill upon patient request if the prescription is for a schedule II opioid drug. Start Date: 06/06/23 Status: Ordered Repeat number: 1 buPROPion 75 mg oral tablet 2 tablet = 150 mg, By Mouth, 2 times a day, 0 Refills, Maintenance, 06/06/23 1:27:00 PM EDT, Partialfill upon patient request if the prescription is for a schedule II opioid drug. Start Date: 06/06/23 Status: Ordered Repeat number: 1 cloNIDine 0.1 mg oral tablet 0.1 mg, 1, tablet, By Mouth, Daily, Refills 0, Maintenance, 06/06/23 1:28:00 PM EDT, Partial fill upon patient request if the prescription is for a schedule II opioid drug. Start Date: 06/06/23 Status: Ordered Repeat number: 1 cloNIDine 0.2 mg oral tablet 0.2 mg, 1, tablet, By Mouth, Daily, Refills 0, Maintenance, 06/06/23 1:29:00 PM EDT, Partial fill upon patient request if the prescription is for a schedule II opioid drug. Start Date: 06/06/23 Status: Ordered Repeat number: 1 diphenhydrAMINE 25 mg oral tablet 1 tablet = 25 mg, By Mouth, 2 times a day, morning and noon. Pt may refuse, 0 Refills, Maintenance,06/06/23 1:18:00 PM EDT, Partial fill upon patient request if the prescription is for a schedule II opioid drug. Start Date: 06/06/23 Status: Ordered Repeat number: 1 diphenhydrAMINE 25 mg oral tablet 2 tablet = 50 mg, By Mouth, Daily at bedtime, pt may refuse, 0 Refills, Maintenance, 06/06/23 1:20:00 PM EDT, Partial fill upon patient request if the prescription is for a schedule II opioid drug. Start Date: 06/06/23 Status: Ordered Repeat number: 1 ethinyl estradiol-levonorgestrel 20 mcg-100 mcg oral tablet 1 tablet, By Mouth, Daily, # 84 tablet, 3 Refills, Maintenance, 02/01/24 11:54:00 AM EST, Tablet, [id number], 1 tablet By Mouth Daily,x84 days, 165, cm, 11/27/22 16:07:00 EDT,Height Start Date: 02/01/24 Stop Date: 01/02/25 Status: Ordered Quantity: 84.0 Unit: tablet Repeat number: 4 gabapentin 300 mg oral capsule 300 mg, 1, capsule, By Mouth, Daily at bedtime, Refills 0, Maintenance, 06/06/23 1:26:00 PM EDT, Partial fill upon patient request if the prescription is for a schedule II opioid drug. Start Date: 06/06/23 Status: Ordered Repeat number: 1 levothyroxine 125 mcg (0.125 mg) oral capsule 1 capsule = 125 mcg, By Mouth, Daily, 0 Refills, Maintenance, 06/06/23 1:27:00 PM EDT, Partial fill upon patient request if the prescription is for a schedule II opioid drug. Start Date: 06/06/23 Status: Ordered Repeat number: 1 methadone 10 mg/5 mL oral solution = 75 mg, By Mouth, Daily in AM, 0 Refills, Maintenance, 06/06/23 1:22:00 PM EDT, Partial fill upon patient request if the prescription is for a schedule II opioid drug. Start Date: 06/06/23 Status: Ordered Repeat number: 1 morphine 15 mg oral tablet, immediate release 1/2 tablet, By Mouth, Every 4 hours, PRN as needed for pain, please take 1/2 tab every 4 hours as needed for severe pain, # 9 tablet, 0 Refills, Maintenance, 06/06/23 3:15:00 PM EDT, Tablet, Partial fill upon patient request if the prescription is for a schedule II opioid drug. Start Date: 06/06/23 Status: Ordered Quantity: 9.0 Unit: tablet Repeat number: 1 prazosin 2 mg oral capsule 1 capsule = 2 mg, By Mouth, Daily, 0 Refills, Maintenance, 06/06/23 1:29:00 PM EDT, Partial fill upon patient request if the prescription is for a schedule II opioid drug. Start Date: 06/06/23 Status: Ordered Repeat number: 1 ProAir HFA 90 mcg/inh inhalation aerosol with adapter 1, puffs, Inhalation, Every 4 hours, PRN, # 8.5 Gm, Refills 1, Tot. Refills 1, Maintenance, 224:03:00 PM EST, Aerosol, Route to Pharmacy Electronically, [id number], [facility]/pharmacy #[id number], 162.5, cm, 12/18/20 9:22:00 EDT, Height, 119.7, kg, 07/23/19 12:02:00 EDT, Dry Weight Start Date: 03/14/21 Status: Ordered Quantity: 8.5 Unit: g Repeat number: 2 Problem List Condition Confirmation Course Effective Dates Status Health St [facility] Informant Anxiety Confirmed Active Asthma Confirmed Active Bipolar disorder Confirmed Active Chlamydia trachomatis Confirmed 04/19/11 Active Chronic low back pain Confirmed Active Migraine with aura Confirmed Active Obese class I Confirmed Active Obesity Confirmed [facility] [phone] Confirmed Active BHN/CCA/BHCP/[phone]/ Health prison, active care coordination Confirmed Active Rh negative Confirmed Active Social History Social History Type Response Smoking Status 10 or more cigarette s (1/2 pack or more)/day in last 30 days; Other: 1.5-2 ppd; entered on: 01/29/20 Sex Sex Representation Female (finding) Patient Care team information Care Team Personnel Name: Amrik Sharma NP Position: [facility] Associate Professional Member Role: PCP Address: [address] [place] [address] Telecom: Care Team Related Persons Name: INES DILLARD Name: NO, ONE AT THIS TIME Name: KIKI ZAMORA Name: JEMAL WEAVER Insurance Providers Guarantor name: TERA DILLARD Health Plan Information #: 1 Payer: [facility] [employer] Member Number: [id number] Policy Number: NA Group Number: [facility] Health Plan Information #: 2 Payer: [facility]ONE CARE Member Number: [id number] Policy Number: NA Group Number: NA Health Plan Information #: 3 Payer: [facility] Member Number: NA Policy Number: NA Group Number: NA
== END 2024-04-06 12:01 | disposition home or self-care (01) ==
PROVIDERS: Emergency Provider Emergency Medicine Emergency Medical Services
DX: F11.20 Opioid dependence, uncomplicated (principal)
CPT/HCPCS: 99282; 99283